=== PATIENT | female | born 1995 | race Caucasian/White ===

== ENCOUNTER 2016-06-18 17:24 | Outpatient (CLI) | payer MEDICAID ==
[~2016-06-18] VITALS: Ht 162.6 cm; Wt 70.0 kg
[~2016-06-18 17:24] MED LIST: CIPRO 500MG TA500 MG PO; COLACE 100100 MG/CAP PO; FLOMAX 0.40.4 MG/CAP PO; LORTAB 5/500 501 TAB; LORTAB 5/500 501 TAB PO; NAPROSYN500 MG PO; NO HOME MEDICATIONS; PERCOCET 325 MG1 TA2 PO; PRILOSEC10 MG PO; ZOFRAN 4MG T4 MG/TAB PO
[2016-06-18 17:52] VITALS: BP 116/73; PULSE 87; TEMP 98.5
[2016-06-18] MEDS ORDERED: PRENATAL1 TA7 (18:01)
[2016-06-18 18:15] VITALS: BP 116/73; PULSE 87; TEMP 98.5
[2016-06-18 18:46] VITALS: BP 120/56; PULSE 78
== END 2016-06-18 18:58 | disposition home or self-care (01) ==
LOC: LDRO 17:24
DX: Z03.71 Encounter for suspected problem with amniotic cavity and membrane ruled out (principal); O99.333 Smoking (tobacco) complicating pregnancy, third trimester; F17.210 Nicotine dependence, cigarettes, uncomplicated; Z3A.34 34 weeks gestation of pregnancy

== ENCOUNTER → 2016-07-09 | Outpatient (CLI) | payer MEDICAID ==
[~2016-07-09] VITALS: Ht 160 cm; Wt 71.8 kg
[~2016-07-09] MED LIST changes: +CELEXA40 MG PO; +IBU800 M1 PO; +PRENATAL1 TA7
[2016-07-09 22:50] VITALS: BP 140/62; PULSE 102; TEMP 98.4
[2016-07-10 00:41] VITALS: BP 140/62; PULSE 102; TEMP 98.4
== END ==
LOC: LDRO 22:32
DX: O47.1 False labor at or after 37 completed weeks of gestation (principal); O99.333 Smoking (tobacco) complicating pregnancy, third trimester; F17.210 Nicotine dependence, cigarettes, uncomplicated; Z3A.37 37 weeks gestation of pregnancy

== ENCOUNTER 2016-07-10 02:20 | Inpatient (IN) | payer MEDICAID ==
[~2016-07-10] VITALS: Ht 160 cm; Wt 71.8 kg
[2016-07-10] VITALS (9 sets, daily range): BP systolic 101–144; BP diastolic 56–89; PULSE 60–96; TEMP 97.7–97.8
[~2016-07-10 02:20] MED LIST changes: -CELEXA40 MG PO; -IBU800 M1 PO
[2016-07-10 03:51] LABS: BASO # 0.1 (0.0-0.2); BASO % 0.6 % (0.0-2.0); EOS % 0.2 % (0-4.0); GRAN # 14.5 (1.4-6.5); HEMOGLOBIN 12.2 g/dl (12.5-16.0); LYMPH % 16.2 % (20.0-51.0); MEAN CELL VOLUME 93 fl (80.0-100.0); MEAN CORPUSCULAR HEMOGLOBIN 31 pg (27.0-31.0); MEAN CORPUSCULAR HGB CONC 33 g/dl (33.0-37.0); MEAN PLATELET VOLUME 11.9 fl (7.4-10.4); MONO # 0.8 (0.1-0.6); MONO % 4.4 % (1.7-9.3); PLATELET COUNT 369 K/mm3 (130-400); RED BLOOD COUNT 3.99 M/mm3 (4.10-5.30); REDCELL DISTRIBUTION WIDTH-CV 12.4 % (11.5-14.5); WHITE BLOOD COUNT 18.6 K/mm3 (4.8-10.8)
[2016-07-10 04:06] LABS: HEMATOCRIT 36.9 % (37.0-47.0)
[2016-07-11 06:40] VITALS: BP 115/68; PULSE 75; TEMP 98.1
[2016-07-11] MEDS ORDERED: IBU800 M1 PO (07:04)
[2016-07-11] MEDS ORDERED: CELEXA40 MG PO (07:05)
== END 2016-07-11 12:05 | disposition home or self-care (01) | DRG 775 ==
LOC: LDRO 02:20 → LDR 02:24 → OB 02:24
PROVIDERS: Obstetrics & Gynecology
PROC: 10E0XZZ Delivery of Products of Conception, External Approach (ICD-10-PCS; principal; 2016-07-10)
DX: O62.3 Precipitate labor (principal); O99.334 Smoking (tobacco) complicating childbirth; F17.210 Nicotine dependence, cigarettes, uncomplicated; O99.824 Streptococcus B carrier state complicating childbirth; Z3A.37 37 weeks gestation of pregnancy; Z37.0 Single live birth
CPT/HCPCS: J2175; J2210; J2590

== ENCOUNTER → 2017-01-02 | Outpatient (REF) ==
[~2017-01-02] MED LIST changes: +CELEXA40 MG PO; +IBU800 M1 PO
[2017-01-02 11:22] LABS: CHLAMYDIA/TRACH by PCR Female NOT DETECTED; NEISSERIA GON by PCR Female NOT DETECTED
== END ==
LOC: ZLAB.WCH 08:46
PROVIDERS: Nurse Practitioner Family
DX: Z01.89 Encounter for other specified special examinations (principal)

== ENCOUNTER 2018-11-11 18:38 | Emergency (ER) | payer SELFPAY ==
[~2018-11-11] VITALS: Ht 162.6 cm; Wt 72.7 kg
[2018-11-11 18:45] VITALS: TEMP 99.1
[2018-11-11 19:06] LABS: COLLECTION METHOD CLEAN CATCH
[2018-11-11 19:25] LABS: MUCOUS Present /lpf; PH 6 (5-8); URINE APPEARANCE Clear; URINE BACTERIA None Seen /hpf; URINE BILIRUBIN Negative (NEGATIVE); URINE BLOOD 3+ (NEGATIVE); URINE COLOR Yellow; URINE GLUCOSE Negative (NEGATIVE); URINE KETONE Negative (NEGATIVE); URINE LEUKOCYTE ESTERASE Negative (NEGATIVE); URINE NITRATE Negative (NEGATIVE); URINE PROTEIN(semi-quant) Negative (NEGATIVE); URINE UROBILINOGEN Negative (NEGATIVE)
[2018-11-11 20:09] LABS: BASO # 0.1 (0.0-0.2); BASO % 0.6 % (0.0-2.0); EOS # 0.6 (0.0-0.7); EOS % 5.9 % (0-4.0); GRAN # 4.7 (1.4-6.5); GRAN % 50.3 % (42.2-75.2); HEMOGLOBIN 12.4 g/dl (12.5-16.0); LYMPH # 3.4 (1.2-3.4); MEAN CELL VOLUME 92 fl (80.0-100.0); MEAN CORPUSCULAR HEMOGLOBIN 31 pg (27.0-31.0); MEAN CORPUSCULAR HGB CONC 34 g/dl (33.0-37.0); MEAN PLATELET VOLUME 9.9 fl (7.4-10.4); MONO # 0.7 (0.1-0.6); MONO % 6.9 % (1.7-9.3); PLATELET COUNT 366 K/mm3 (130-400); RED BLOOD COUNT 3.98 M/mm3 (4.10-5.30); REDCELL DISTRIBUTION WIDTH-CV 12.3 % (11.5-14.5)
[2018-11-11 20:14] LABS: HEMATOCRIT 36.4 % (37.0-47.0)
[2018-11-11 21:56] VITALS: BP 100/76; PULSE 66
== END 2018-11-11 21:56 | disposition home or self-care (01) ==
LOC: COL.ER 18:38
PROVIDERS: Nurse Practitioner
DX: O02.1 Missed abortion (principal); J45.909 Unspecified asthma, uncomplicated; F17.210 Nicotine dependence, cigarettes, uncomplicated; Z90.49 Acquired absence of other specified parts of digestive tract